=== PATIENT | male | born 1990 | race Caucasian/White ===

== ENCOUNTER 2020-01-02 07:25 | Day surgery (SDC) | payer OTHER ==
[2020-01-02] MEDS ORDERED: CEFAZOLIN/SWI 1gm 1 GM/10 ML SYR ONE (07:52)
[2020-01-02] MEDS ORDERED: Ringers Lactate 1,000 ML IV ONE (07:52)
[2020-01-02] MEDS ORDERED: BUPIVACA 0.25%/EPI 0.0005%/PF 30 ML VIAL ONE (08:37)
[2020-01-02] MEDS ORDERED: MIDAZOLAM HCL 2 MG/2 ML INJ ONE (09:25)
[2020-01-02] MEDS ORDERED: propofoL 200 MG/20 ML VIAL IV ONE (09:25)
[2020-01-02] MEDS ORDERED: FENTANYL CITR 100 MCG/2 ML ONE ×2 (09:25→10:36)
[2020-01-02] MEDS ORDERED: LIDOCAINE 1% MPF 5 ML VIAL ONE (09:26)
[2020-01-02] MEDS ORDERED: dexAMETHasone 10 MG/ML VIAL ONE (09:50)
[2020-01-02] MEDS ORDERED: ONDANSETRON 4 MG/2 ML VIAL ONE (09:50)
[2020-01-02] MEDS ORDERED: KETOROLAC 30 MG/ML INJ ONE (09:50)
--- NOTE | 2020-01-02 11:07 | P.OP ---
Preoperative diagnosis: RIGHT inguinal hernia Postoperative diagnosis: RIGHT inguinal hernia Primary procedure: Open RIGHT inguinal hernia repair with mesh Anesthesia: GETA + Local Estimated blood loss: <10cc Specimen: cord lipoma Findings: large hernia, thin external oblique aponeurosis Complications: None Implants: Bard Perfix large plug and patch repair system Transferred to: Recovery Room Condition: Good
[2020-01-02] MEDS: HYDROMORPHONE HCL 2 MG/ML inj ONE ×3 (11:25→11:55)
[2020-01-02] MEDS ORDERED: PROMETHAZINE INJ 25 MG/ML AMP ONE (11:29)
[2020-01-02] MEDS ORDERED: MEPERIDINE HCL 25 MG/ML SYR ONE (11:40)
[2020-01-02] MEDS ORDERED: HYDROCODONE/APAP 5/325 MG TAB ONE (12:34)
[2020-01-02 14:44] VITALS: BP 148/87; TEMP 98.6; O2SAT 97
--- NOTE | 2020-01-02 21:49 | OP ---
Date of Procedure: 01/02/2020 Surgeon: Foster Jaime MD, Preoperative Diagnosis: Large right inguinal hernia. Postoperative Diagnosis: Large right inguinal hernia. Procedure Performed: Open right inguinal hernia repair with plug and patch mesh system. Anesthesia: General endotracheal plus local with 0.25% Marcaine with epinephrine. Estimated Blood Loss: Less than 2 mL. Specimen: Cord lipoma. Findings: Large indirect inguinal hernia. Very thin external oblique aponeurosis. Complications: None. Implants: Bard PerFix large plug and patch hernia repair system. Disposition: Transferred to recovery room in good condition. Procedure In Detail: After informed consent was obtained, patient was brought to the operating room, prepped and draped in the usual sterile fashion. After adequate anesthesia was achieved, an area of the right inguinal area was appropriately anesthetized and sharply incised with a 15 blade down to s ubcutaneous tissues. Dissection continued down through subcutaneous fat using electrocautery down th rough Camper fat and Park fascia to expose the external oblique aponeurosis. External oblique apon eurosis was sharply incised and opened in its entirety while protecting the ilioinguinal nerve. It w as found to be quite thin, friable, and see through at the direction of the fibers was confirmed. At this point, dissection continued down to the spermatic cord structures, which were encircled at this point with a Lawrence drain distracting the testicle inferiorly. It was easy to identify a large cor d lipoma coming up in a medial direction consistent with an indirect inguinal hernia with respect to the epigastric vessels. At this point, I opened the hernia sac up and hernia sac was found to be not very large at this point and reducible quite easily into the preperitoneal space. I dissected the c ord lipoma from the cord structures and sent off for pathologic examination which is quite large. Th e inguinal defect was going to be between the medium and large defect in the deep inguinal ring area. The hernia defect was then circumferentially cleared with finger sweep. No hemostatic measures req uired. A large Bard PerFix plug and patch hernia repair system was brought in and hydrated appropria tely and then a pair shotted into the hernia defect after pushing and distracting the hernia sac back in the preperitoneal space. The plug system was then deployed at this point and secured with the 4 circumferential 0 PDS sutures and the area was irrigated. The spermatic cord structures were verifie d to have adequate blood supply and under not too much tension at this point and the testicle was dis tracted and the Carson drain remained around the spermatic cord structures. I then sized the hernia patch and brought it into the field after hydrating appropriately and positioning around the spermat ic cord structures and secured to the pubic tubercle medially and circumferentially on the shelving e dge on the medial and lateral aspects and the inguinal ring was reconstituted using the 0 PDS suture. At this point, the area was irrigated. The external oblique aponeurosis was reapproximated, zahraeve r, could not be completely put together, as it was quite thin and friable with a running 3-0 Vicryl s uture. The Camper fat and Park fascia were closed en bloc using a 3-0 Vicryl suture in a running f ashion and the area was copiously irrigated once again, dried, and the skin was closed using 4-0 [place] cryl in running fashion. Dermabond was placed over the top. Patient tolerated the procedure well without evidence of complication and transferred to PACU in good condition. All counts were correct at the end of the case. GUADALUPE/ROVERTO Voice ID: [id number] Report ID: [id number]
== END 2020-01-02 14:30 | disposition home or self-care (01) ==
LOC: OR 07:25
PROVIDERS: ATTEND Surgery
PROC: 0YU50JZ Supplement Right Inguinal Region with Synthetic Substitute, Open Approach (ICD-10-PCS; principal; 2020-01-02 08:30)
DX: K40.90 Unilateral inguinal hernia, without obstruction or gangrene, not specified as recurrent (principal); Z11.59 Encounter for screening for other viral diseases
CPT/HCPCS: 88302; 49505; U0002; J2704; J2550; J2250; J1170; J3010 ×2; J1100; J2175; J0690; J7120; J2405